=== PATIENT | female | born 2000 | race Caucasian/White ===

== ENCOUNTER 2021-03-10 12:04 | Emergency (ER) | payer MEDICAID ==
[~2021-03-10] VITALS: Ht 177.8 cm; Wt 120.2 kg
[2021-03-10 12:26] VITALS: BP 126/98
[2021-03-10] MEDS ORDERED: METH4TAB3 PO (12:52)
[2021-03-10] MEDS ORDERED: KETOROLAC TROMETHAMINE INJ 30 MG/ML VIAL ONE ×2 (12:53→13:10)
--- NOTE | 2021-03-10 12:56 | NUR ---
pt made aware of medication thats ordered. states no chance of being .
[2021-03-10] MEDS ORDERED: KETOROLAC TROMETHAMINE INJ 60 MG/2 ML VIAL IM ONE (13:00)
--- NOTE | 2021-03-10 13:18 | NUR ---
pt given toradol 30 mg im 02/13 pain Patient discharged to home in stable condition. Written and verbal after care instructions given. Patient verbalizes understanding of instruction.
== END 2021-03-10 13:22 | disposition home or self-care (01) ==
LOC: ER 12:10
DX: M54.5 Low back pain (principal)
CPT/HCPCS: 96372; 99283; J1885 ×2

== ENCOUNTER 2021-03-13 22:20 | Emergency (ER) | payer MEDICAID ==
[~2021-03-13] VITALS: Ht 177.8 cm; Wt 117.9 kg
[~2021-03-13 22:20] MED LIST: METH4TAB3 PO
[2021-03-13 22:43] VITALS: BP 145/99
--- NOTE | 2021-03-13 22:52 | NUR ---
Patient discharged to home in stable condition. Written and verbal after care instructions given. Patient verbalizes understanding of instruction.
[2021-03-13] MEDS ORDERED: ACETAMINOPHEN 325 MG TABLET PO ONE (23:00)
== END 2021-03-13 22:54 | disposition home or self-care (01) ==
LOC: ER 22:24
DX: T22.011A Burn of unspecified degree of right forearm, initial encounter (principal); Z71.1 Person with feared health complaint in whom no diagnosis is made; Z79.899 Other long term (current) drug therapy; X08.8XXA Exposure to other specified smoke, fire and flames, initial encounter; Y93.89 Activity, other specified; Y92.89 Other specified places as the place of occurrence of the external cause; Y99.8 Other external cause status

== ENCOUNTER 2021-08-06 14:38 | Emergency (ER) | payer MEDICAID ==
[~2021-08-06] VITALS: Ht 180.3 cm; Wt 122.5 kg
--- NOTE | 2021-08-06 15:12 | NUR ---
PT CAME TO ER C/O STERNAL CHEST PAIN ON/OFF RADIATING TO L ARM X 2 DAYS. HX OF MARFAN'S SYNDROME W MITRAL VALVE PROLAPSE. +NAUSEA, REPORTS VOMITING TODAY. ALSO C/O COUGH, SORE THROAT, GENERALIZED WEAKNESS X 4 DAYS. AAOX4, BREATHING EVEN AND UNLABORED. NO ACTIVE VOMITING. ON MONITOR. POX 96% ON RA. WILL CONTINUE TO MONITOR.
--- NOTE | 2021-08-06 15:26 | NUR ---
blood sample obtained and sent to lab
[2021-08-06] MEDS ORDERED: ONDANSETRON HCL/PF - ER 4 MG/2 ML VIAL IV ONE (16:00)
[2021-08-06 16:09] LABS: BASOPHILS % (AUTO) 0.1 % (0.0-2.0); HEMATOCRIT 48 % (33-45); HEMOGLOBIN 15.9 g/dL (11.5-14.8); LYMPHOCYTES # (AUTO) 0.5 K/uL (0.8-4.8); MEAN CORPUSCULAR HGB CONC 33 g/dl (31.0-36.0); MEAN CORPUSCULAR VOLUME 98 fL (82-100); MONOCYTES # (AUTO) 0.5 K/uL (0.1-1.30); NEUTROPHILS # (AUTO) 6.1 K/uL (1.8-8.9); NEUTROPHILS % (AUTO) 83.9 % (43.0-81.0); PLATELET COUNT (AUTO) 335 K/uL (150-450); RED BLOOD CELL COUNT(AUTO) 4.84 MIL/uL (4.0-5.2); WHITE BLOOD COUNT (AUTO) 7.2 K/uL (4.3-11.0)
[2021-08-06] MEDS ORDERED: ONDANSETRON HCL/PF 4 MG/2 ML VIAL ONE (16:29)
--- NOTE | 2021-08-06 16:33 | NUR ---
X RAY AT BEDSIDE
[2021-08-06 16:34] LABS: ALBUMIN 3.4 g/dL (3.4-5.0); BILIRUBIN,TOTAL 0.6 mg/dL (0.2-1.0); CALCIUM, SERUM 8.5 mg/dL (8.5-10.1); CREATININE 0.9 mg/dL (0.6-1.3); POTASSIUM 4.1 mmol/L (3.5-5.1); TOTAL PROTEIN, SERUM 7.3 g/dL (6.4-8.2)
[2021-08-06] MEDS ORDERED: IOHEXOL-350 100 ML VIAL IV ONE (18:55)
[2021-08-06] MEDS ORDERED: IV NS 0.9% 250 ML IV ONE (18:55)
--- NOTE | 2021-08-06 18:56 | NUR ---
PT SIGNED WAIVER
--- NOTE | 2021-08-06 19:07 | NUR ---
PT BACK FROM CT
[2021-08-06] MEDS ORDERED: ONDA4TAB5 PO (20:03)
[2021-08-06] MEDS ORDERED: BENZ-13 PO (20:03)
[2021-08-06] MEDS ORDERED: IBUP-1955 PO (20:04)
[2021-08-06] MEDS ORDERED: CALCIUM CARBONATE 500 MG TAB.CHEW ONE (20:38)
--- NOTE | 2021-08-06 20:39 | NUR ---
Patient discharged to home in stable condition. RX Written and verbal after care instructions given. Patient verbalizes understanding of instruction. PT ambulatory with a steady gait
[2021-08-06 20:41] VITALS: BP 121/71
[2021-08-06] MEDS ORDERED: CALCIUM CARBONATE 500 MG TAB.CHEW PO ONE (21:00)
== END 2021-08-06 20:41 | disposition home or self-care (01) ==
LOC: ER 15:24
DX: B34.9 Viral infection, unspecified (principal); R07.89 Other chest pain; R10.13 Epigastric pain; I10 Essential (primary) hypertension; Z79.899 Other long term (current) drug therapy
CPT/HCPCS: 36415; 71045; 71275; 76705; 80053; 84484 ×2; 84703; 85025; 85378; 93005 ×4; 96374; 99285; J2405 ×2; J7050; Q9967

== ENCOUNTER → 2021-10-11 | Emergency (ER) | payer MEDICAID ==
[~2021-10-11] VITALS: Ht 180.3 cm; Wt 120.2 kg
[~2021-10-11] MED LIST changes: +BENZ-13 PO; +IBUP-1955 PO; +LIDOCAINE VISCOUS 2% UD 15 ML UDC ONE; +MAG HYDROX/AL HYDROX/SIMETH 30 ML UDC ONE; +ONDA4TAB5 PO; +ONDANSETRON 4 MG TAB.RAPDIS ONE; +PANT40TA2 PO
--- NOTE | 2021-10-11 00:25 | NUR ---
BIBS C/O NAUSEA AND VOMITTING SINCE 2PM. PATIENT ALERT AND ORIENTED X3. AMBULATORY WITH NON LABORED BREATHING IN BED 10 AWAITING MD ERNANDEZ.
[2021-10-11] MEDS: LIDOCAINE VISCOUS 2% UD 15 ML UDC MM ONE (00:42)
[2021-10-11] MEDS: MAG HYDROX/AL HYDROX/SIMETH 30 ML UDC PO ONE (00:42)
[2021-10-11] MEDS: ONDANSETRON 4 MG TAB.RAPDIS SL ONE (00:42)
--- NOTE | 2021-10-11 01:15 | NUR ---
Patient discharged to home in stable condition. Written and verbal after care instructions given. Patient verbalizes understanding of instruction.pT ambulatory with a steady gait
[2021-10-11 01:18] VITALS: BP 130/84
== END | disposition home or self-care (01) ==
LOC: ER 00:18
DX: K21.9 Gastro-esophageal reflux disease without esophagitis (principal); R11.2 Nausea with vomiting, unspecified; Z87.74 Personal history of (corrected) congenital malformations of heart and circulatory system; Z87.39 Personal history of other diseases of the musculoskeletal system and connective tissue; Z87.798 Personal history of other (corrected) congenital malformations; Z79.1 Long term (current) use of non-steroidal anti-inflammatories (NSAID); Z79.52 Long term (current) use of systemic steroids; Z79.899 Other long term (current) drug therapy
CPT/HCPCS: 99283; Q0162

== ENCOUNTER 2021-11-25 22:07 | Emergency (ER) | payer MEDICAID ==
[~2021-11-25] VITALS: Ht 180.3 cm; Wt 108.9 kg
[~2021-11-25 22:07] MED LIST changes: -LIDOCAINE VISCOUS 2% UD 15 ML UDC ONE; -MAG HYDROX/AL HYDROX/SIMETH 30 ML UDC ONE; -ONDANSETRON 4 MG TAB.RAPDIS ONE
--- NOTE | 2021-11-25 22:23 | NUR ---
BIBS TO ER BED 2. AAOX4. NOT IN RESP DISTRESS BUT VERBALIZES THAT SHE IS HAVING DIFFICULTY BREATHING. BREATHING NOTED EVEN AND UNLABORED SATTING AT 97% ON RA. CAME IN FOR A L SIDE CP THAT IS RADIAITING TO THE NECK WHICH STARTED 10MIN [employer]AT[employer] WHILE SHE WAS WAITING IN LINE AT THE [facility]. PT REPORTS DESCRIBES PAIN DULL AND ACHING RATING IT 2/10. PT ALSO VERBALIZES THAT HE LEFT ARM IS TIGHT AND FEELS WEAK. MD WAS AT THE BEDSIDE FOR EVAL. ORDERS RECEIVED, NOTED AND CARRIED OUT. EKG DONE AT BEDSIDE
--- NOTE | 2021-11-25 22:25 | NUR ---
LAC #20G S/L; PATENT AND INTACT. BLOOD COLLECTED AND SENT TO LAB
[2021-11-25 22:39] LABS: BASOPHILS % (AUTO) 0.5 % (0.0-2.0); EOSINOPHILS % (AUTO) 2.4 % (0.0-6.0); HEMATOCRIT 44 % (33-45); HEMOGLOBIN 14.9 g/dL (11.5-14.8); LYMPHOCYTES # (AUTO) 2.3 K/uL (0.8-4.8); MEAN CORPUSCULAR HGB CONC 34 g/dl (31.0-36.0); MEAN CORPUSCULAR VOLUME 96 fL (82-100); MONOCYTES # (AUTO) 0.6 K/uL (0.1-1.30); MONOCYTES % (AUTO) 6.9 % (2.0-12.0); NEUTROPHILS # (AUTO) 5.7 K/uL (1.8-8.9); NEUTROPHILS % (AUTO) 64.2 % (43.0-81.0); PLATELET COUNT (AUTO) 329 K/uL (150-450); RED BLOOD CELL COUNT(AUTO) 4.53 MIL/uL (4.0-5.2); WHITE BLOOD COUNT (AUTO) 8.8 K/uL (4.3-11.0)
[2021-11-25 22:58] LABS: CALCIUM, SERUM 8.6 mg/dL (8.5-10.1); POTASSIUM 3.4 mmol/L (3.5-5.1)
[2021-11-25] MEDS ORDERED: IOHEXOL-350 100 ML VIAL IV ONE (23:33)
[2021-11-25] MEDS ORDERED: IV NS 0.9% 250 ML IV ONE (23:33)
--- NOTE | 2021-11-25 23:35 | NUR ---
PT TAKEN TO CT VIA [facility]
--- NOTE | 2021-11-25 23:45 | NUR ---
PT RETURNED TO ER BED [address]
--- NOTE | 2021-11-25 23:45 | NUR ---
PT RETURNED FROM CT VIA [facility]
--- NOTE | 2021-11-26 00:12 | NUR ---
OVERCOIL STEPPER AT PT'S BEDSIDE
--- NOTE | 2021-11-26 01:22 | NUR ---
Patient discharged to home in stable condition. Written and verbal after care instructions given. Patient verbalizes understanding of instruction. IV line removed and PT ambulatory with steady gait.
[2021-11-26 01:23] VITALS: BP 112/73
== END 2021-11-26 01:23 | disposition home or self-care (01) ==
LOC: ER 22:12
DX: R07.89 Other chest pain (principal); Z87.39 Personal history of other diseases of the musculoskeletal system and connective tissue; Z79.899 Other long term (current) drug therapy
CPT/HCPCS: 36415 ×2; 71275; 80048; 84484 ×2; 84702; 85025; 93005; 99285; J7050; Q9967